=== PATIENT | male | born 1950 | race Caucasian/White ===

== ENCOUNTER 2023-02-14 08:11 | Outpatient (CLI) | payer MEDICARE, OTHER, SELFPAY ==
--- NOTE | ~2023-02-14 | NM_ITS ---
EXAMINATION: NM bone scan whole body DATE: 02/14/2023 11:36 INDICATION: Abnormal finding on other diagnostic imaging with sclerotic lesion at the left humeral he ad. TECHNIQUE: 25.0 mCi Tc-99m HDP was administered intravenously. Delayed whole-body scintigrams were o btained. COMPARISON: Left shoulder, left elbow and cervical spine radiographs dated 01/24/2023 FINDINGS: Likely degenerative mild joint centered uptake at the acromioclavicular joints, right greater than le ft and at the sternoclavicular joints, left greater than right. There is also mild uptake at the bila teral greater tuberosities, left greater than right. The left shoulder there is corresponding mild cy stic and hypertrophic change along the middle facet of the left greater tuberosity consistent with li alanis chronic rotator cuff disease. There is also subtle calcific tendinitis which could also contribu te to the increased uptake in the overlying soft tissues. No evident increased uptake in the more inf eromedial metaphyseal region of the left humeral head at the site of the mixed lytic and sclerotic leonora ne lesion seen on the prior radiographs which most likely represent an enchondroma. No other foci of abnormal bone uptake to suggest metastatic disease. IMPRESSION: 1. No increased uptake associated with the mixed lytic and sclerotic lesion at the metaphyseal region of the proximal left humerus which most likely represents an enchondroma. No other bone lesions susp icious for metastatic disease. 2. Mild uptake at the left greater tuberosity likely related to chronic left rotator cuff disease inc luding calcific tendinitis. Reviewed, dictated and finalized at location A. ON DIOXIDE OPERATOR IMPRESSION: 1. No increased uptake associated with the mixed lytic and sclerotic lesion at the metaphyseal region of the proximal left humerus which most likely represent s an enchondroma. No other bone lesions suspicious for metastatic disease. 2. Mild uptake at the left greater tuberosity likely related to chronic left ro tator cuff disease including calcific tendinitis.
== END 2023-02-14 08:12 | disposition home or self-care (01) ==
LOC: ANHIMG 08:15
PROVIDERS: PCP Physician Assistant Medical; Visit Provider Physician Assistant Medical
DX: R93.6 Abnormal findings on diagnostic imaging of limbs (principal); R93.7 Abnormal findings on diagnostic imaging of other parts of musculoskeletal system
CPT/HCPCS: 78306; A9503

== ENCOUNTER 2023-04-19 10:00 | Outpatient (RCR) | payer MEDICARE, OTHER, SELFPAY ==
--- NOTE | 2023-02-20 15:18 | PTOPEVAL1 ---
Assessment and note entered by Delia Montes, PT Evaluation Information Assessment Status Evaluation Diagnosis pain in left shoulder Therapy condition abnormal posture, weakness Onset 09/2022 Subjective Information Pt reports wasn't having issues in left shoulder until fell in September this year. Was coming off the roof on step ladder, was using blower in left hand holding ladder in the right, took a fall and hit on left shoulder and elbow. Fall from horizontal of at least 3 feet. Initially couldn't raise arm at all. When first does certain arm movements will hurt just a little bit then loosens up. Can still feel it but is not as bad. Difficulty with laying on shoulder, dressing, driving and turning inward, placing weight through the joint in sitting Reported Pain Level Pain Score 0: Self Report Assessment PT Clinical Summary Pt demo's multiple areas of decreased ROM, and decreased strength, multiple (+) special tests for left shoulder pathology, as well as poor scapualr stabilization. Pt will benefit from physical therapy to address defictis and improve discomfort to meet patient goals. Plan of Care Interventions Electrical Stimulation,Hot Pack/Cold Pack,Manual Therapy,Neuro Re-education,Therapeutic Activities, Therapeutic Exercise,Ultrasound PT Services Indicated Yes Treatment Frequency and 1-2x weekly x 8 visits Duration These treatments will address the objective and functional deficits as defined above. The patient will be advanced safely and appropriately in order for the patient to progress towards his/her prior level of function. Additional exercises will be introduced and as well as a comprehensive home exercise program upon discharge, if needed, ?to ensure carryover of functional gains achieved in the clinic. This treatment plan has been reviewed and agreement upon by the patient.
--- NOTE | 2023-02-20 15:19 | OPREHPOC ---
Outpatient Therapy Plan of Care This is a Multidisciplinary Plan of Care that may contain components documented by all disciplines (PT, OT, and ST.) PT Problem 1 PT Problem #1 Knowledge Deficit PT Goal 1 Goal Pt will be independent in HEP Pt will verbalize understanding of diagnosis and prognosis Target Visit 8 PT Problem 2 PT Problem #2 Pain PT Goal 1 Goal Pt will report greatest pain level at 3/10 or less to improve ADLs Target Visit 8 PT Goal 2 Goal Pt will report resolution of pain to return to PLOF Target Visit 16 PT Problem 3 PT Problem #3 Impaired Strength PT Goal 1 Goal Pt will demo strength of 4/5 in all tested planes Target Visit 16 PT Goal 2 Goal Pt will demo improved serratus anterior strength by showing reduction of scapular winging Target Visit 16 PT Problem 4 PT Problem #4 Impaired Range of Motion PT Goal 1 Goal Pt will demo flexion of 150 degrees without pain LUE Target Visit 8 PT Goal 2 Goal Pt will demo equal internal rotation LUE to RUE witout pain Target Visit 16
--- NOTE | 2023-03-17 13:34 | PTOPPROG ---
Assessment and note entered by Delia Montes, PT Assessment Status Progress Diagnosis pain in left shoulder Onset 09/2022 Subjective Information Pt reports is doing pretty good. This morning work up and left shoulder was tired but has been laying on it better. Dressing is still hurting but not as much. Yesterday took an ibuprofen 9 am and last night was driving at 7 pm could feel it but it wasn't pain . This morning driving could feel it. [place] good after last therapy session but also took ibuprofen. Self-percieved improvement: 50% Assessment PT Clinical Summary Pt has attended therapy consistently for left shoulder pain and pain into elbow. Pt shows improved ROM in flexion, but cont to have pain end -range abduction and pain and limitations in internal rotation compared to RUE. He cont to show weakness in the left shoulder compared to the right as well as (+) test for Empty-can and Speed' s test. However he also reports significantly improved pain and improved postures. Pt will benefit from continued therapy to attempt to strengthen rotator cuff and continue improving pain and function. Plan of Care Interventions Electrical Stimulation,Hot Pack/Cold Pack,Manual Therapy,Neuro Re-education,Therapeutic Activities, Therapeutic Exercise,Ultrasound PT Services Indicated Yes Treatment Frequency and 1-2x weekly x 4 weeks Duration These treatments will address the objective and functional deficits as defined above. The patient will be advanced safely and appropriately in order for the patient to progress towards his/her prior level of function. Additional exercises will be introduced and as well as a comprehensive home exercise program upon discharge, if needed, ?to ensure carryover of functional gains achieved in the clinic. This treatment plan has been reviewed and agreement upon by the patient.
--- NOTE | 2023-04-19 10:56 | PTOPDC ---
Assessment and note entered by Delia Montes, PT Assessment Status Discharge Diagnosis pain in left shoulder Onset 09/2022 Subjective Information Was doing really well and went to push up in bed and had a pain in the shoulder and a tightness of a 1/10. Siting here currently has no issues. States has been doing his exercises and this usually helps. Still helps a little especially the stretch the spider thing up the wall. Reaching up feels tight and fatigued. Laying on shoulder, dressing, driving turning inward all doing better. Is able to lift arm up and to side today without discomfort. Self-perceived improvement: 80% Doesn't feel like the strength is there compared to right Reported Pain Level Pain Score 0: Self Report Assessment PT Clinical Summary Pt has attended therapy consistently for left shoulder/arm pain and issues. Today he reports self-perceived improvement of 80%. Pain at worst rating is a 2/10 and pt reports has been able to perform raking and some lawn activities. Is worried about performing lawn activities in the Summer months. Pt was educated to treat LUE the same with strains or soreness as he would any other limb irritation. He demo's mild improvements in left rotator cuff muscle strength but no longer demo's (+) Speeds test and Empty-can test is (+) for weakness but (-) for pain. Pt has met multiple goals and partially met the rest. Thus patient is being discharged at this time for independent strengthening and activity progression .
== END 2023-04-19 12:42 | disposition home or self-care (01) ==
LOC: ANHHIPT 10:00
PROVIDERS: PCP Physician Assistant Medical; Visit Provider Physician Assistant Medical
DX: M25.512 Pain in left shoulder (principal)
CPT/HCPCS: 97014; 97110; 97112; 97140; 97161; 97530; 97750; G0283

== ENCOUNTER 2023-07-17 08:30 | Outpatient (CLI) | payer MEDICARE, OTHER, SELFPAY ==
--- NOTE | 2023-07-17 08:36 | ECG_ITS ---
SEE SCANNED COPY FOR CONFIRMED REPORT MTDD
== END 2023-07-17 08:31 | disposition home or self-care (01) ==
LOC: ANHSURGERY 08:35
PROVIDERS: PCP Physician Assistant Medical; Visit Provider Surgery
DX: Z01.818 Encounter for other preprocedural examination (principal); K40.90 Unilateral inguinal hernia, without obstruction or gangrene, not specified as recurrent; I10 Essential (primary) hypertension
CPT/HCPCS: 36415; 86850; 86900; 86901; 93005

== ENCOUNTER 2023-07-20 01:36 | Day surgery (SDC) | payer MEDICARE, OTHER, SELFPAY ==
[2023-07-14 11:25] VITALS: BMI 26.6
--- NOTE | 2023-07-14 11:35 | PC.NURSE ---
PRE-OP INSTRUCTIONS, PLEASE READ CAREFULLY Report to the Outpatient Waiting Room, entrance under the green pavilion located off [facility], at time _12:30 PM_ on date _07/20/23_. Planned Procedure Time: _2:30 PM_. Time changes happen often and if your time is changed the preop area will call you the afternoon before. - You and your visitor will be asked to self-screen and do not enter if you have any COVID symptoms. - A mask is optional within the hospital at this time. Patients may have clear liquids (water, carbonated beverages, clear teas, apple juice) until 3 hours prior to surgery (1130 AM) with a maximum of 20 ounces. - No food from midnight until time of surgery Take the following medications with a SIP of water the morning of surgery: _BUPROPION, CLONAZEPAM, SERTRALINE, & LORAZEPAM IF NEEDED_ DO NOT STOP ANY OF YOUR OTHER PRESCRIPTION MEDICATIONS PRIOR TO SURGERY ?EXCEPT THE FOLLOWING Medications to discontinue per ANESTHESIA - _MULTIVITAMIN/SUPPLEMENTS 3 DAYS PRIOR TO SURGERY, Date to take last dose 07/16/23_ Please no make-up, nail bulgarian, hairspray, perfume, deodorant, or body powder the day of surgery. No jewelry (including any body piercings) or valuables the day of surgery, leave them at home. Please take a shower or bath the night before, or the morning of, surgery with an antibacterial soap. Wear comfortable, loose fitting clothing. - Jewelry must be removed prior to entering the operating room. Rings and piercings that are not removed may be cut off. - The hospital will not accept responsibility for valuables. - Please leave all valuables, including medications, at home the day of surgery. If you are going home after surgery, a licensed regional tanker truck driver must drive you home. - NO public transportation without another adult if you receive anesthesia. - We recommend that an adult stay with you for 24 hours following discharge. - We also recommend that you do not drive, make important decision, drink alcoholic beverages, or take any drugs that were not prescribed by your health care provider for at least 24 hours after your discharge time. Follow any additional instructions given to you from your surgeon. If you or anyone in your household have experienced Covid symptoms in the past week, please notify your surgeon or the nurse liaison at the phone number below for possible testing. Telephone instructions given to _PATIENT_and asked if any additional questions and then verbalized understanding. Patient advised to call surgeon office or pre surgery nurse liaison [phone] if any additional questions.
[2023-07-20] VITALS (10 sets, daily range): BP systolic 101–134; BP diastolic 47–71; PULSE 52–65; RESP 14–18; TEMP 36.2–36.4; O2SAT 97–100; BMI 26.4
--- NOTE | 2023-07-20 12:04 | WPDHPUPDATE1 ---
History and Physical Update Update Date/Time: 07/20/23 12:04 History and Physical has been reviewed, including an updated exam of the patient. There are NO changes in the patient's condition. Risks, benefits, and alternatives have been discussed and questions answered. Patient agrees to proceed with procedure.
[2023-07-20] MEDS: LACTATED RINGERS 1,000 ML 30 ML IV CONT ×3 (12:50→19:21)
[2023-07-20] MEDS: ACETAMINOPHEN 500 MG TABLET 1000 MG PO (13:02)
[2023-07-20] MEDS: KETOROLAC 15 MG/ML VIAL (*BKC) IV PUSH (13:04)
--- NOTE | 2023-07-20 14:23 | WPDANESEPPF ---
Anes - Initial Pre Proc Eval Procedure: Operation Date: 07/20/23 14:30 Proposed Procedures p Robotic Laparoscopic Repair Right Inguinal Hernia with Mesh - César Wilkins MD Date/Time: 07/20/23 14:23 Surgeon: César Wilkins MD Pre Op Diagnosis: Right Inguinal Hernia Patient Data Age: 73 Gender: M Height: 1.7 m Weight: 76.6 kg Last Vital Signs Temp 36.4 C L 07/20/23 13:22 Pulse 54 L 07/20/23 13:22 Resp 16 07/20/23 13:22 BP 127/71 07/20/23 13:22 Pulse Ox 99 07/20/23 13:22 O2 Del Method Room Air 07/20/23 13:22 Allergies Allergy/AdvReac Type Severity Reaction Status Date / Time Influenza Virus Vaccines AdvReac Unknown Chills Verified 07/20/23 13:12 Home Medications Medication Instructions Recorded Confirmed Type cholecalciferol (vitamin D3) 50 50 mcg PO DAILY 02/18/21 07/20/23 History mcg (2,000 unit) tablet multivitamin 1 tablet PO DAILY 02/18/21 07/20/23 History finasteride 5 mg tablet 5 mg PO DAILY 04/04/22 07/14/23 History clotrimazole-betamethasone 1 1 applic topical BID PRN rash 04/08/22 07/14/23 Rx %-0.05 % topical cream ankles #15 grams bupropion HCl 150 mg tablet,12 hr 150 mg PO DAILY #90 tabs 12/15/22 07/20/23 Rx sustained-release (Wellbutrin SR) rosuvastatin 10 mg tablet See Rx Instructions .Route 03/16/23 07/14/23 Rx .COMPLEX #90 tabs sertraline 100 mg tablet See Rx Instructions .Route 05/26/23 07/14/23 Rx .COMPLEX #180 tabs clonazepam 1 mg tablet 1 mg PO DAILY #30 tabs 06/23/23 07/20/23 Rx irbesartan 150 mg tablet See Rx Instructions .Route 06/23/23 07/14/23 Rx .COMPLEX #90 tabs tamsulosin 0.4 mg capsule 0.4 mg PO DAILY 07/06/23 07/14/23 History polyethylene glycol 3350 17 17 g PO DAILY 07/13/23 07/14/23 History gram/dose oral powder (Miralax) psyllium husk 0.4 gram capsule 0.4 g PO DAILY 07/13/23 07/14/23 History (Metamucil) chlorpheniramine-phenylpropan ER 4 1 cap PO QID PRN Cough 07/14/23 07/14/23 History mg-75 mg capsule,extended release lorazepam 1 mg tablet See Rx Instructions .Route 07/14/23 07/20/23 History .COMPLEX PRN anxiety Patient hx anesthesia problems: none Family hx anesthesia problems: none Results Review: All pre-operative results and documents have been reviewed as part of the pre-operative evaluation. [facility] Past Medical History Medical History Anxiety Benign prostatic hyperplasia with nocturia Degenerative joint disease (DJD) of hip Dyslipidemia Hair loss HTN (hypertension) Laryngopharyngeal reflux (LPR) Muscle tension dysphonia Surgical History Surgical History History of prostate biopsy 03/15/22 negative pathology History of surgical removal of pilonidal cyst Family History Family History Other Heart disease High cholesterol Hypertension Social History Social History Smoking status: Never smoker Second hand tobacco smoke exposure: No Alcohol intake: never Drinks per week: 7 Substance use: never Substance use type: does not use Do You Feel Safe in your Home?: Yes Lack of Transportation: No Lack of Food: Never True Current Housing: I Have Housing Concerned About Future Housing: No Difficulty Paying Gas/Electric Bills: No Difficulty Paying for Meds: No Currently Unemployed: No Education: Trade/Vocational Certificate Difficulty w/ Childcare or Family Care: No Living arrangements: with family Occupation/Education: retired Additional occupation/education comments: [employer] Fe[employer]: [employer] Gender identity (if verbalized by the patient): Male Sexual Orientation (if Verbalized by the Patient): Straight or Heterosexual Spiritual care concerns: No Anes - Eval Final PreProcedure Day of Procedure 07/20/23 14:23 Patient leanne
[2023-07-20] MEDS: ceFAZolin 2 GM/D5W 50 ML 2 GM/50 ML BAG IVPB (15:11)
[2023-07-20] MEDS: BUPIVACAINE/EPINEPHRINE 0.5% 50 ML VIAL 30 ML INFILTRATE (16:09)
--- NOTE | 2023-07-20 17:32 | W.PM.PROC2 ---
Procedure Note - Detailed Date of Procedure 07/20/23 Pre-op Diagnosis Right Inguinal Hernia Post-op Diagnosis Same Procedure Performed Robotic laparoscopic repair right inguinal hernia with mesh Surgeon César Wilkins MD Director Of Global Sales Artemio OTTO Anesthesia General and Local Indications Patient noticed back in June a painful bulge in the right groin. It is particularly painful when he coughs. He was seen in the office and found to have a reducible right inguinal hernia. He is taken to surgery now for robotic repair with mesh Findings Patient had an unusual hernia. This was primarily a direct inguinal hernia but he also had significant weakness in and small hernia in the indirect space and in the femoral canal. Description of Procedure Patient was taken to surgery and induced into general anesthesia. Local anesthetic was infiltrated prior to placement of each of the trocars. Initial trocar was then applied Medical optical trocar in the left upper quadrant. Robotic trocars were then placed under direct visualization and the optical trocar was switched to a robotic trocar as well. Patient was placed in Trendelenburg. The robot was brought into the field and docked. Camera was targeted and the instruments were placed. The surgeon went to the robotic console. An anterior peritoneal flap was created starting laterally and proceeding medially to the median umbilical ligament. The flap was dissected broadly working on the medial aspect 1st and then the lateral aspect before going to the areas where the hernias were located. In the medial aspect we dissected across the midline. We dissected down to the pubis and Sergei's ligament and exposed most of Sergei's ligament as well as about 2 cm posterior to the Sergei's. The peritoneum was reduced from the direct hernia leaving the transversalis fascia in the defect. We also dissected the herniated peritoneum from the indirect hernia. The vas deferens and spermatic cord vessels were found and carefully preserved. The inferior epigastric vessels were carefully avoided. The hernias were completely reduced and we continued to dissect the peritoneum well posterior to the hernias. There was a considerable amount of fatty tissue stuck in the femoral canal and this was reduced. I dissected medially on Sergei's ligament until the obturator fat plug was noted. All looked good. An extra-large right mid 17 x 12 cm 3DMax mesh was then positioned in the inguinal space. I sutured the mesh with 3-0 Vicryl to Sergei's ligament. Two additional 3-0 Vicryl sutures were placed anteriorly, 1 on either side of the inferior epigastric vessels. The mesh was in good position covering well all of the potential hernia sites. The peritoneal flap was then closed starting laterally and proceeding medially with 3 0 V lock suture. The suture needles were then retrieved. All looked good. There were no holes in the peritoneal flap. The instruments were removed and the robot was undocked. Trocars were removed. The wounds were closed with subcuticular running 4-0 Monocryl skin suture. The wounds were dressed with Exofin surgical adhesive. The patient was awakened and taken to recovery in good condition. Sponge and needle counts were correct x2. Implants Extra-large 17 x 12 cm right mid 3DMax mesh Estimated Blood Loss -10 Drains No Packing No Pathology None sent Complications No immediate complications Condition Stable Disposition PACU [facility] Billing Surgery - Charge Forward: Surgery Billing (Robotic laparoscopic repair right inguinal hernia with mesh)
[2023-07-20] MEDS: oxyCODONE HCL (*CRX) 5 MG TAB IR PO (19:15)
== END 2023-07-20 19:32 | disposition home or self-care (01) ==
PROVIDERS: PCP Physician Assistant Medical; Visit Provider Surgery
PROC: 8E0Y4CZ Robotic Assisted Procedure of Lower Extremity, Percutaneous Endoscopic Approach (ICD-10-PCS; CPT 49650; principal; 2023-07-20 14:30)
DX: K40.90 Unilateral inguinal hernia, without obstruction or gangrene, not specified as recurrent (principal); I10 Essential (primary) hypertension; E78.5 Hyperlipidemia, unspecified; F41.9 Anxiety disorder, unspecified; N40.0 Benign prostatic hyperplasia without lower urinary tract symptoms; Z98.890 Other specified postprocedural states; Z82.49 Family history of ischemic heart disease and other diseases of the circulatory system
CPT/HCPCS: 49650; S2900; A9270; C1781; J0330; J0690; J1100; J1596; J1885; J2405; J2704; J3010; J7030; J7120